=== PATIENT | female | born 1945 | race Caucasian/White ===

== ENCOUNTER 2023-01-26 16:21 | Inpatient (IN) | payer OTHER ==
[~2023-01-26] VITALS: Ht 157.5 cm; Wt 62.6 kg
[2023-01-26 16:34] VITALS: BP_SYST 136; PULSE 82; RESP 18; TEMP 97.2; O2SAT 93
[2023-01-26] MEDS ORDERED: NACL 0.9% 1,000 ML IV ONE (17:00)
[2023-01-26] MEDS ORDERED: ONDANSETRON HCL 4 MG/2 ML VIAL IVP ONE (17:00)
[2023-01-26] MEDS ORDERED: DIAZEPAM 10 MG/2 ML DISP.SYRIN IVP ONE (17:15)
[2023-01-26 17:42] LABS: BASOPHILS % (AUTO) 0.1 % (0.0-2.0); EOSINOPHILS % (AUTO) 0.4 % (0.0-4.0); HEMATOCRIT 43.5 % (36-48); HEMOGLOBIN 13.7 g/dL (12.0-16.0); LYMPHOCYTES # (AUTO) 1.8 K/uL (1.0-5.5); MEAN CORPUSCULAR HEMOGLOBIN 30 pg (27-31); MEAN CORPUSCULAR HGB CONC 32 % (32-36); MEAN CORPUSCULAR VOLUME 95 fL (79.0-98.0); MONOCYTES # (AUTO) 0.5 K/uL (0.0-1.0); MONOCYTES % (AUTO) 5.6 % (1.7-9.3); NEUTROPHILS % (AUTO) 74.9 % (40.0-70.0); PLATELET COUNT (AUTO) 192 K/uL (130-430); RED BLOOD CELL COUNT(AUTO) 4.56 MIL/uL (4.2-6.2); RED CELL DISTRIBUTION WIDTH 14.7 % (9.0-15.0); WHITE BLOOD COUNT (AUTO) 9.3 K/uL (4.8-10.8)
[2023-01-26] MEDS ORDERED: LORazepam 2 MG/ML VIAL IVP ONE (17:45)
[2023-01-26 17:56] LABS: ANION GAP 11 (5-15); CALCIUM 9.1 mg/dL (8.4-11.0); CARBON DIOXIDE 27 mmol/L (23-29); CHLORIDE 101 mmol/L (98-107); GLUCOSE 216 mg/dL (74-106); POTASSIUM 4.3 mmol/L (3.5-5.1); SODIUM SERUM 139 mmol/L (136-145); UREA NITROGEN, BLOOD 25 mg/dL (8-21)
[2023-01-26 18:03] LABS: ALANINE AMINOTRANSFERASE 37 U/L (12-78); ALBUMIN 3.9 g/dL (3.4-4.8); ASPARTATE AMINOTRANSFERASE 33 U/L (10-37); LIPASE 49 U/L (73-393); PHOSPHORUS 4.1 mg/dL (2.7-4.5); TOTAL BILIRUBIN 0.5 mg/dL (0.0-1.0); TOTAL PROTEIN, SERUM 7.7 g/dL (6.4-8.3)
[2023-01-26] MEDS ORDERED: iohexoL 350 mgI/mL, 100 ML INFUS..BTL IV ONE (18:12)
[2023-01-26 19:58] LABS: CLARITY/URINE HAZY (CLEAR); COLOR,URINE YELLOW (YELLOW); GLUCOSE,URINE NEGATIVE (NEGATIVE); PROTEIN URINE 2+ (NEGATIVE)
[2023-01-26 19:59] LABS: BILIRUBIN,URINE NEGATIVE (NEGATIVE); BLOOD, URINE TRACE (NEGATIVE); KETONES,URINE TRACE (NEGATIVE); NITRITE, URINE NEGATIVE (NEGATIVE); UROBILINOGEN,URINE 0.2 (0.2-1.0)
[2023-01-26 20:03] LABS: BACTERIA,URINE MANY /HPF (None Seen); LEUKOCYTE ESTERASE ,URINE 3+ (NEGATIVE); MUCUS,URINE None Seen /LPF (None Seen); WBC,URINE >100 /HPF (0-3)
[2023-01-26] MEDS ORDERED: cefTRIAXone 1 GM IVPB PREMIX 50 ML IV ONE (21:00)
[2023-01-26] MEDS ORDERED: KETOROLAC TROMETHAMINE 15 MG VIAL IVP ONE (21:30)
[2023-01-26] MEDS ORDERED: METF-381 PO (22:44)
[2023-01-26] MEDS ORDERED: ROSU40TA23 PO (22:44)
[2023-01-26] MEDS ORDERED: INSU100I28 (22:44)
[2023-01-26] MEDS ORDERED: ESCI-6 PO (22:44)
[2023-01-26] MEDS ORDERED: METO200T49 PO (22:44)
[2023-01-26 23:55] VITALS: BP_SYST 123; PULSE 86; RESP 18; TEMP 96.4
[2023-01-27 00:30] VITALS: O2SAT 98
[2023-01-27] MEDS: D5/0.45 NS 1,000 ML IV SCH ×3 (00:42→22:36)
[2023-01-27 07:45] VITALS: BP_SYST 103; PULSE 91; RESP 18; TEMP 97.1; O2SAT 92
[2023-01-27] MEDS ORDERED: cefTRIAXone 1 GM VIAL IV SCH (09:00)
[2023-01-27] MEDS ORDERED: INSULIN ASPART 100 UNITS/ML, 10 ML VIAL (NovoLOG) SUBCUT PRN (11:15)
[2023-01-27] MEDS ORDERED: INSULIN LISPRO SLIDING SCALE 100 UNITS/ML, 3 ML VIAL (humaLOG) SUBCUT PRN (11:45)
[2023-01-27 12:00] VITALS: BP_SYST 113; PULSE 88; RESP 18; TEMP 97.4; O2SAT 94
[2023-01-27] MEDS ORDERED: D5W 1,000 ML IV PRN (12:00)
[2023-01-27] MEDS ORDERED: GLUCOSE (DEXTROSE) ORAL GEL -Adults PO PRN (12:00)
[2023-01-27] MEDS ORDERED: DEXTROSE 50% JECT 50 ML DISP.SYRIN IVP PRN (12:00)
[2023-01-27] MEDS: MECLIZINE HCL 25 MG TABLET (ANITVERT) PO SCH ×2 (15:39→20:24)
[2023-01-27 16:00] VITALS: BP_SYST 137; PULSE 85; RESP 20; TEMP 99; O2SAT 96
[2023-01-27] MEDS: INSULIN REGULAR, HUMAN 100 UNITS/ML, 3 ML VIAL (humuLIN R) SUBCUT PRN ×2 (17:49→20:27)
[2023-01-27 20:00] VITALS: BP_SYST 130; PULSE 85; RESP 18; TEMP 97.4; O2SAT 95
[2023-01-27] MEDS ORDERED: CEFTRIAXONE SOD 1 GM/ DEXTROSE,ISO 50 ML PREMIX IV SCH (21:00)
[2023-01-28 00:27] VITALS: BP_SYST 133; PULSE 92; RESP 17; TEMP 97.9; O2SAT 95
[2023-01-28 05:09] LABS: BASOPHILS % (AUTO) 0.2 % (0.0-2.0); EOSINOPHILS # (AUTO) 0.2 K/uL (0.0-0.4); EOSINOPHILS % (AUTO) 2.2 % (0.0-4.0); HEMATOCRIT 37.5 % (36-48); HEMOGLOBIN 12.2 g/dL (12.0-16.0); LYMPHOCYTES % (AUTO) 26.6 % (20.5-51.5); MEAN CORPUSCULAR HEMOGLOBIN 31 pg (27-31); MEAN CORPUSCULAR HGB CONC 33 % (32-36); MEAN CORPUSCULAR VOLUME 96 fL (79.0-98.0); MONOCYTES # (AUTO) 0.6 K/uL (0.0-1.0); MONOCYTES % (AUTO) 8.1 % (1.7-9.3); NEUTROPHILS # (AUTO) 4.8 K/uL (1.8-7.7); NEUTROPHILS % (AUTO) 62.9 % (40.0-70.0); PLATELET COUNT (AUTO) 152 K/uL (130-430); RED BLOOD CELL COUNT(AUTO) 3.92 MIL/uL (4.2-6.2); RED CELL DISTRIBUTION WIDTH 14.7 % (9.0-15.0); WHITE BLOOD COUNT (AUTO) 7.7 K/uL (4.8-10.8)
[2023-01-28 05:39] LABS: ANION GAP 10 (5-15); CALCIUM 8.1 mg/dL (8.4-11.0); CARBON DIOXIDE 25 mmol/L (23-29); CHLORIDE 105 mmol/L (98-107); CREATININE 0.63 mg/dL (0.55-1.30); GLUCOSE 353 mg/dL (74-106); POTASSIUM 4.3 mmol/L (3.5-5.1); SODIUM SERUM 140 mmol/L (136-145); UREA NITROGEN, BLOOD 17 mg/dL (8-21)
[2023-01-28] MEDS: INSULIN REGULAR, HUMAN 100 UNITS/ML, 3 ML VIAL (humuLIN R) SUBCUT PRN ×2 (06:05→11:34)
[2023-01-28] MEDS: D5/0.45 NS 1,000 ML IV SCH (06:09)
[2023-01-28 08:00] VITALS: O2SAT 98
[2023-01-28 08:01] VITALS: BP_SYST 113; PULSE 87; RESP 16; TEMP 97.1; O2SAT 94
[2023-01-28] MEDS ORDERED: PANTOPRAZOLE SODIUM 40 MG TAB PO SCH (09:00)
[2023-01-28] MEDS: MECLIZINE HCL 25 MG TABLET (ANITVERT) PO SCH (09:06)
[2023-01-28] MEDS ORDERED: FAMO20TA8 PO (12:33)
[2023-01-28] MEDS ORDERED: LEVO250T73 PO (12:33)
[2023-01-28] MEDS ORDERED: MECL-160 PO (12:33)
[2023-01-28 12:56] VITALS: BP_SYST 121; PULSE 84; RESP 17; TEMP 97.4; O2SAT 97
[2023-01-28 14:19] VITALS: BP_SYST 124; PULSE 90; RESP 17; TEMP 98.7; O2SAT 97
== END 2023-01-28 15:10 | disposition home or self-care (01) | DRG 552 ==
LOC: SED 16:21 → SMU 22:25
PROVIDERS: ADMIT Specialist; ATTEND Specialist
DX: M47.812 Spondylosis without myelopathy or radiculopathy, cervical region (principal); N39.0 Urinary tract infection, site not specified; I10 Essential (primary) hypertension; E78.5 Hyperlipidemia, unspecified; E11.9 Type 2 diabetes mellitus without complications; F41.9 Anxiety disorder, unspecified; F32.A Depression, unspecified; Z79.4 Long term (current) use of insulin; Z79.899 Other long term (current) drug therapy
CPT/HCPCS: 36415; 70450-TC; 70496; 70498; 70551; 71045; 76376; 80048; 80053; 81000; 82962; 83605; 83690; 83735; 83880; 84100; 84484; 85025; 87040; 87086; 93005; 96361; 96365; 96375; 97110-GP; 97116-GP; 97163-GP; 97530-GP; 99285; J0696; J1815; J1885; J2060; J2405; J8597; Q9967